=== PATIENT | male | born 1985 | race American Indian/Alaskan Native ===

== ENCOUNTER 2016-08-26 20:52 | Emergency (ER) | payer OTHER ==
[2016-08-26] MEDS ORDERED: TYLENOL ONE (21:13)
[2016-08-26] MEDS ORDERED: TYLENOL PO ONE (21:21)
[2016-08-26 21:26] VITALS: BP 163/106
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
[2016-08-26 23:51] LABS: Basophils % (Auto) 0.6 % (0.0-1.8); Eosinophils % (Auto) 2.6 % (0.0-4.3); Hematocrit 37.3 % (35.5-45.6); Hemoglobin 12.2 gm/dl (11.8-15.2); Mean Corpuscular HGB Conc 33 % (32-34); Mean Corpuscular Volume 74 fl (84-94); Platelet Count 248 K/mm3 (140-440); Red Blood Count 5.06 M/mm3 (3.65-5.03); Red Cell Distribution Width 16.4 % (13.2-15.2); White Blood Count 9.1 K/mm3 (4.5-11.0)
[2016-08-26 23:54] LABS: Mean Corpuscular Hemoglobin 24 pg (28-32)
[2016-08-27 00:03] LABS: INR 1.03 (0.87-1.13)
[2016-08-27 00:04] LABS: Partial Thromboplastin Time 35.4 Sec. (24.2-36.6)
[2016-08-27 00:09] LABS: Anion Gap 19 mmol/L; Blood Urea Nitrogen 13 mg/dL (9-20); Calcium 9.2 mg/dL (8.4-10.2); Carbon Dioxide 25 mmol/L (22-30); Chloride 99.3 mmol/L (98-107); Glucose 268 mg/dL (75-100); Sodium 139 mmol/L (137-145)
== END 2016-08-27 03:00 | disposition left against medical advice (07) ==
LOC: ED 20:52
DX: R07.9 Chest pain, unspecified (principal); M54.5 Low back pain; V89.2XXA Person injured in unspecified motor-vehicle accident, traffic, initial encounter; Y92.488 Other paved roadways as the place of occurrence of the external cause; Y93.89 Activity, other specified; Y99.8 Other external cause status; Z53.21 Procedure and treatment not carried out due to patient leaving prior to being seen by health care provider
CPT/HCPCS: 36415; 72100; 80048; 84484; 85025; 85610; 85730; 93005; 93010

== ENCOUNTER 2021-02-25 07:32 | Emergency (ER) | payer SELFPAY ==
[2021-02-25 07:53] VITALS: BP 172/102
[2021-02-25] MEDS ORDERED: MECLIZINE 25 MG TAB PO ONE (08:20)
[2021-02-25] MEDS ORDERED: cloNIDine 0.1 MG TAB PO ONE (08:21)
--- NOTE | 2021-02-25 08:24 | Emergency Department Report ---
ED Dizziness HPI - General Chief Complaint: Dizziness Stated Complaint: HEAD SPINNING Time Seen by Provider: 02/25/21 07:54 Source: patient Mode of arrival: Ambulatory Limitations: No Limitations - History of Present Illness Initial Comments: Patient is 36 years old male with history of hypertension. Patient was recently admitted to [facility] for hypertensive emergency and had a full work- up including CT brain, EKG and troponin and all came back negative. Patient started on metoprolol and lisinopril however his blood pressure is not con trolled. Patient presented to the ER complaining of dizziness for the last few days. Patient stated that dizziness increases with movement and improved with remaining still. Patient denied any focal weakness numbness or tingling sensation. MD Complaint: dizziness -: days(s) Timing: gradual onset Description: "room spinning" History of Same: Yes Severity: moderate Improves With: remaining still Worsens With: movement Associated Symptoms: denies other symptoms - Related Data Home Medications Medication Instructions Recorded Confirmed Last Taken glipiZIDE [glipiZIDE ER] 5 mg PO QAM 06/23/14 06/23/14 Unknown metFORMIN [Glucophage] 500 mg PO BID 06/23/14 06/23/14 Unknown Previous Rx's Medication Instructions Recorded Last Taken Type Lisinopril/Hydrochlorothiazide 1 tab PO QDAY 15 Days tablet 08/11/13 08/13/13 09:00 Rx [Zestoretic 20-12.5 mg] Allergies Allergy/AdvReac Type Severity Reaction Status Date / Time No Known Allergies Allergy Unverified 08/11/13 16:10 ED Review of Systems ROS: Stated complaint: HEAD SPINNING Other details as noted in HPI Comment: All other systems reviewed and negative Constitutional: denies: chills, fever ENT: ear pain Respiratory: denies: cough, shortness of breath Cardiovascular: denies: chest pain, palpitations Gastrointestinal: denies: abdominal pain, nausea, vomiting Musculoskeletal: denies: back pain Neurological: vertigo. denies: headache, weakness, numbness, abnormal gait ED Past Medical Hx - Past Medical History Previous Medical History?: Yes Hx Hypertension: Yes Hx Diabetes: Yes Additional medical history: Obesity - Surgical History Past Surgical History?: Yes Additional Surgical History: herniax2, left knee - Social History Smoking Status: Never Smoker Substance Use Type: None - Medications Home Medications: Home Medications Medication Instructions Recorded Confirmed Last Taken Type Lisinopril/Hydrochlorothiazide 1 tab PO QDAY 15 Days tablet 08/11/13 06/23/14 08/13/13 09:00 Rx [Zestoretic 20-12.5 mg] glipiZIDE [glipiZIDE ER] 5 mg PO QAM 06/23/14 06/23/14 Unknown History metFORMIN [Glucophage] 500 mg PO BID 06/23/14 06/23/14 Unknown History ED Physical Exam - General Limitations: No Limitations General appearance: alert, in no apparent distress - Head Head exam: Present: atraumatic, normocephalic, normal inspection - Eye Eye exam: Present: normal appearance, PERRL - ENT ENT exam: Present: normal orophraynx, mucous membranes moist, other (Bilateral serous otitis media.) - Neck Neck exam: Present: normal inspection, full ROM. Absent: tenderness, meningismus - Respiratory Respiratory exam: Present: normal lung sounds bilaterally - Cardiovascular Cardiovascular Exam: Present: regular rate, normal rhythm, normal heart sounds - GI/Abdominal GI/Abdominal exam: Present: soft, normal bowel sounds. Absent: distended, tenderness, guarding, rebound, rigid, organomegaly, mass, bruit, pulsatile mass, hernia - Extremities Exam Extremities exam: Present: normal inspection, full ROM, normal capillary refill. Absent: tenderness, pedal edema, joint swelling, calf tenderness - Back Exam Back exam: Present: normal inspection, full ROM. Absent: CVA tenderness (R), CVA tenderness (L) - Neurological Exam Neurological exam: Present: alert, oriented X3, CN II-XII intact, normal gait, reflexes normal. Absent: motor sensory deficit - Psychiatric Psychiatric exam: Present: normal mood - Skin Skin exam: Present: warm, intact, normal color ED Course Vital Signs 02/25/21 07:38 Temperature 98.5 F Pulse Rate 88 Respiratory 18 Rate Blood Pressure 172/102 O2 Sat by Pulse 98 Oximetry Critical care attestation.: If time is entered above; I have spent that time in minutes in the direct care of this critically ill patient, excluding procedure time. ED Disposition Clinical Impression: Dizziness, Hypertension Disposition: 07 LEFT AWOL/ELOPED Is pt being admited?: No Condition: Stable Instructions: Hypertension (ED), Preventing Hypertension
== END 2021-02-25 11:00 | disposition left against medical advice (07) ==
LOC: ED 07:32
DX: R42 Dizziness and giddiness (principal); I10 Essential (primary) hypertension; E11.9 Type 2 diabetes mellitus without complications; Z79.899 Other long term (current) drug therapy
CPT/HCPCS: 99281